=== PATIENT | female | born 1940 | race Caucasian/White ===

== ENCOUNTER 2019-01-23 08:58 | Day surgery (SDC) | payer OTHER ==
--- NOTE | 2019-01-16 11:55 | RAD REPORT ---
EXAM DESCRIPTION: Jeffrey Dos Santos (2 Views)01/16/2019 10:56 am CLINICAL HISTORY: Shortness of breath/preop COMPARISON: None FINDINGS: The lungs appear clear of acute infiltrate. The heart is normal size IMPRESSION: No acute abnormalities displayed
--- NOTE | 2019-01-16 21:40 | EKG ---
Test Date: 2019-01-16 Test Time: 10:31:56 Bisque Brusher: PAPITO MEASUREMENT RESULTS: Intervals: Rate: 70 PA: 140 QRSD: 72 QT: 408 QTc: 440 [place]: P: 49 PA: 140 QRS: 35 T: 57 INTERPRETIVE STATEMENTS: Normal sinus rhythm Normal ECG No previous ECG available for comparison Electronically Signed On 01-16-19 21:38:25 CDT by Ramiro Dunn
--- OUTSIDE RECORDS SUMMARY | 2019-01-23 09:03 | XMS REPORT | Summary of Care ---
:1940 Author Organization [facility] Primary [facility] [place] Address [address] [place] [address]- Encounter HQ Alex(FIN) [phone] Date(s): 01/08/19 - 01/08/19 [facility] [place] [address] [place] [address] [place] [address]- Discharge Disposition: Home or Self Care Attending Physician: Sami Li MD Vital Signs Most recent to oldest [Reference Range]: 1 Height 152.4 cm (01/08/19 9:56 AM) Temperature Oral [96.4-99.1 DegF] 98.5 DegF (01/08/19 9:56 AM) Blood Pressure [90-140/60-90 mmHg] 101/66 mmHg (01/08/19 9:56 AM) Peripheral Pulse Rate [60-100 bpm] 93 bpm (01/08/19 9:56 AM) Weight 79 kg (01/08/19 9:56 AM) Body Mass Index 34.01 m2 (01/08/19 9:56 AM) Problem List Condition Effective Dates Status Health Status Informant Other allergic rhinitis(Confirmed) Active Arthritis(Confirmed) Active Asthma(Confirmed) Active Fatigue(Confirmed) Active GERD without esophagitis(Confirmed) Active Anxiety, generalized(Confirmed) Active Chronic wound infection of Active abdomen(Confirmed) Obesity(Confirmed) Active Seasonal allergies(Confirmed) Active Chicken pox(Confirmed) Resolved Allergies, Adverse Reactions, Alerts Substance Reaction Severity Status NKDA Active Medications No Known Medications Results No data available for this section Immunizations Given and Recorded Vaccine Date Status Refusal Reason Hx influenza vaccine-unspecified 06/19/18 Recorded pneumococcal 23-valent vaccine 09/19/15 Recorded zoster vaccine live 09/19/15 Recorded Procedures Procedure Date Related Diagnosis Body Site Status Arthroscopy of knee Completed Cholecystectomy Completed Colectomy Completed Stress test ECG - treadmill Completed Trigger thumb Completed Social History Social History Type Response Smoking Status Never smoker; Exposure to Tobacco Smoke None; Cigarette Smoking Last 365 Days No; Reg Smoking Cessation Counseling No entered on: 01/08/19 Assessment and Plan No data available for this section
--- OUTSIDE RECORDS SUMMARY | 2019-01-23 09:03 | XMS REPORT | Summary of Care ---
:1940 Author Organization [facility] Primary [facility] [place] Address [address] [place] [address]- Care Team Providers Name Role Phone Sami Li Primary Care Physician Encounter HQ Alex(DEVIN) [phone] Date(s): 06/26/18 - 06/27/18 [facility] [place] [address] [place] [address]- Vital Signs No data available for this section Problem List Condition Effective Dates Status Health Status Informant Other allergic rhinitis(Confirmed) Active Arthritis(Confirmed) Active Asthma(Confirmed) Active Fatigue(Confirmed) Active GERD without esophagitis(Confirmed) Active Anxiety, generalized(Confirmed) Active Chronic wound infection of Active abdomen(Confirmed) Obesity(Confirmed) Active Seasonal allergies(Confirmed) Active Chicken pox(Confirmed) Resolved Allergies, Adverse Reactions, Alerts No Known Medication Allergies Medications No data available for this section Results No data available for this section [...]
--- OUTSIDE RECORDS SUMMARY | 2019-01-23 09:03 | XMS REPORT | Summary of Care ---
:1940 Author Organization [facility] Primary [facility] [place] Address [address] [place] [address]- Care Team Providers Name Role Phone Sami Li Primary Care Physician Encounter HQ Alex(DEVIN) [phone] Date(s): 01/10/19 - 01/11/19 [facility] Primary [facility] [place] [address] [address] [place] [address]- Vital Signs No data available for this [...]
--- OUTSIDE RECORDS SUMMARY | 2019-01-23 09:03 | XMS REPORT | Continuity of Care Document ---
:1940 Author Organization Interface Problems Problem Status Onset Classification Date Comments Source Date Reported WOUND Active 10/30/19 [facility] 19 Other fatigue 06/24/20 01/07/2019 [facility] 18 [facility] LUMBAR Active 06/03/20 [facility] [place] SPONDYLOSIS, [facility] CERVICAL RADICULOPAT Discharge 03/23/20 03/26/2017 [facility] Diagnosis: 17 Head trauma HEAD INJURY Active 03/23/20 [facility] 17 [facility] R05 - COUGH Active 07/16/20 [facility] 15 [facility] Arthritis Active Problem 01/21/2019 [facility] [place] [facility], [facility] Asthma Active Problem 01/21/2019 [facility] [place] [facility], [facility] Fatigue Active Problem 01/21/2019 [facility] Group, [facility] [place] [facility], [facility] GERD without Active Problem 01/21/2019 Medical esophagitis Group,[facility] [place] [facility], [facility] Anxiety, Active Problem 01/21/2019 Medical generalized Group,[facility] [place] [facility], [facility] Obesity Active Problem 01/21/2019 [facility] [place] [facility], [facility] Seasonal Active Problem 01/21/2019 Medical allergies Group, [facility] [place] [facility], [facility] Chicken pox Resolved Problem 01/21/2019 [facility] Group,[facility] [place] [facility], [facility] Chronic wound Active Problem 01/21/2019 Medical infection of Group, [facility] abdomen [facility] Other allergic Active Problem 01/21/2019 Medical rhinitis Group, [facility] Other forms of 01/07/2019 [facility] dyspnea [facility] Medications Medication Details Route Status Patient Ordering Order Source Instructions Provider Date Estradiol 1 MG Oral =1 tab, Active Tablet PO, Daily, 2019 Medical # 90 tab, Group 1 Refill(s), Pharmacy: [facility] Alprazolam 0.25 MG 0.25 mg=1 Active Oral Tablet tab, PO, 2017 Medical Daily, PRN Group as needed for anxiety, # 90 tab, 1 Refill(s) Fluoxetine 20 MG Oral See Active Capsule [Prozac] Instructio 2018 Medical ns, 1/2 Group cap PO QAM x 1 week, then 1 full tab PO QAM, # 999 tab, 0 Refill(s), other omeprazole 20 mg oral See Active delayed release Instructio 2018 Medical capsule ns, # 90 Group unknown unit, Refill(s) 1, TAKE ONE CAPSULE BY MOUTH ONCE DAILY, Pharmacy: [facility] Docusate Sodium 100 100 mg=1 Active 01/06/ MH MG Oral Capsule cap, PO, 2017 Medical Daily, PRN Group Constipati on, # 90 cap, 0 Refill(s), Pharmacy: [facility] ferrous sulfate 325 325 mg=1 Active MH mg oral enteric tab, PO, 2017 Medical coated tablet BID, give Group with orange juice, # 60 tab, 1 Refill(s), Pharmacy: [facility] FLUoxetine 20 mg oral See Active tablet Instructio 2018 Medical ns, 1/2 Group tab PO QAM x 1 week, then 1 full tab PO QAM, # 30 tab, 5 Refill(s), Pharmacy: [facility] ciprofloxacin 250 mg 250 mg=1 No Longer oral tablet tab, PO, Active 2017 Medical Q12H, for Group UTI, X 3 day, # 6 tab, 0 Refill(s), Pharmacy: [facility] Estradiol 1 MG Oral 1 mg=1 Active Tablet [Estrace] tab, PO, 2017 Medical Daily, # Group 90 tab, 1 Refill(s), Pharmacy: [facility] medroxyprogesterone 2.5 mg=1 Active acetate 2.5 MG Oral tab, PO, 2017 Medical Tablet [Provera] Daily, # Group 90 tab, 3 Refill(s), Pharmacy: [facility] omeprazole 20 mg oral 20 mg=1 Active delayed release cap, PO, 2016 Medical capsule Daily, # Group 90 cap, 1 Refill(s), Pharmacy: [facility] Alprazolam 0.25 MG 0.25 mg=1 Active Oral Tablet tab, PO, 2016 Medical Daily, 0 Group Refill(s) Estradiol 1 MG Oral 1 mg=1 Active Tablet [Estrace] tab, PO, 2016 Medical Daily, # Group 90 tab, 1 Refill(s) sennosides, NURSING HOME 0 Active Refill(s) 2017 Medical Group Ondansetron 4 MG 4 mg=1 Active Disintegrating Tablet tab, PO, 2016 Medical [Zofran] BID, PRN Group Nausea and Vomiting, Dissolve tab under tongue, # 10 tab, 0 Refill(s) Metoclopramide 5 MG 5 mg=1 Inactive Oral Tablet [Reglan] tab, PO, 2016 Medical QID, # 360 Group tab, 0 Refill(s) Medroxyprogesterone 2.5 mg, 1 Active tab every 2017 Medical other day, Group 0 Refill(s) Cephalexin 500 MG 500 mg=1 Active Oral Capsule [Keflex] cap, PO, 2017 Medical BID, # 14 Group cap, 0 Refill(s) Ibuprofen 600 mg, Inactive Route: PO, 2016 [place] ONCE, Dosing Weight 77, kg, Priority: STAT, Start date: 03/23/17 10:43:00 CDT, Stop date: 03/23/17 10:43:00 CDT Allergies, Adverse Reactions, Alerts Substance Category Reaction Severity Reaction Status Date Comments Source type Reported No Known Assertion Drug Medication allergy Medical Allergies Group Immunizations Immunization Date Site Status Last Comments Source Given Updated Hx influenza [facility] vaccine-unspecifi 8 Group ed pneumococcal [facility] 23-valent vaccine 6 Group, JONES [place] zoster vaccine [facility] live 6 Group, [facility] Results Order Results Value Reference Date Interpretation Comments Source Name Range Chest 2 Chest 2 EXAM: Chest 2 views DX 06/20 - [facility] views DX views DX /2017 - [facility] DATE: 06/20/2018 9:20 AM CDT INDICATION: - R06.09 Other forms of dyspnea Read by: Zenon Nance MD Dictated Date/time: 06/20/18 10:24 COMPARISON: 07/16/2015. Electronically Signed by: Zenon Nance MD 06/20/18 10:25 FINAL REPORT IMPRESSION: Stable cardiac silhouette and mediastinum. The lungs are mildly hyperexpanded. No focal consolidation, significant pleural effusion or pneumothorax. Mild thoracic spondylosis. SL: [id number] Spine Spine Patient Name: JONNATHAN RIVERA 03/23 - [facility] cervical cervical /2016 - [facility]air wo wo : 1940; Age: 77 years y/o Female contrast contrast CT CT MR: [id number] Read by: Tha Irvin MD Dictated Date/time: 03/23/17 11:11 Electronically Signed by: Tha Irvin MD 03/23/17 11:16 FINAL REPORT Study: Spine cervical wo contrast CT 03/23/2017 10:43 AM CDT Ordering Physician: Clinical Indication: - head trauma, dlp 228.32mgy-cm; Comparison: None Cervical spine CT without contrast No cervical spine fracture, pathologic subluxation or lesion. There is advanced degenerative spondylosis. Severe facet arthropathy most marked at the left C1-C2 facet. There is disc space narrowing and osteophytes which cause severe neural exit foraminal encroachment on the right at C3-C4, C5- C6 and C6-C7. Left apical pleural and parenchymal fibrotic changes are present. IMPRESSION: Advanced multilevel degenerative spondylosis. No acute findings. SL: [id number] Brain wo Brain wo I have reviewed this examination and concur with the interpretation. 03/23 - [facility] contrast contrast /2016 - [place] CT CT Patient Name: JONNATHAN RIVERA : 1940; Age: 77 years y/o Female Read by: Colby Salomon MD Dictated Date/time: 03/23/17 11:24 MR: [id number] Electronically Signed by: Colby Salomon MD 03/23/17 11:25 FINAL REPORT - - Study: Brain wo contrast CT 03/23/2017 10:43 AM CDT Read by: Tha Irvin MD Dictated Date/time: 03/23/17 11:08 Clinical Indication: head trauma - head trauma, dlp 999.46mgy-cm; Electronically Signed by: Tha Irvin MD 03/23/17 11 :10 FINAL REPORT Comparison: None TECHNIQUE: CT images were obtained from the foramen magnum to the vertex without the use of intravenous contrast on a multidetector CT. Coronal and sagittal reconstructions were obtained. FINDINGS: BRAIN PARENCHYMA: Mild periventricular white matter microvascular ischemic changes are noted. There are normal porter-white interfaces. No evidence for subarachnoid, intraparenchymal or intraventricular hemorrhage. No significant extra-axial fluid collection, mass effect or shift. No evidence for an acute infarction. No mass lesions identified about the brain. VENTRICLES: Ventricles and sulci are within normal limits for the patient' s age. ORBITS, MASTOIDS AND PARANASAL SINUSES: The visualized orbits and paranasal sinuses are unremarkable. The mastoid air cells are clear. SKULL: There are no osseous abnormalities. If there is further concern for intracranial pathology or acute stroke, MRI of the brain may be performed for complete assessment. IMPRESSION: No acute intracranial finding. SL: [id number] Chest 2 Chest 2 PA and LATERAL CHEST 07/16 - [facility] views DX views DX /2015 - [facility] (2 views) Read by: Lino Gama MD Dictated Date/time: 07/16/15 16:42 HISTORY: cough, aspiration Electronically Signed by: Lino Gama MD 07/16/15 16:43 FINAL REPORT There are no prior studies available for comparison. FINDINGS: The lungs are clear. There are no pleural effusions. The heart and pulmonary vasculature are within normal limits. Mild degenerative change involving the thoracic spine. Otherwise, the regional skeleton is unremarkable. The lateral view, metallic densities project at the upper abdomen, probably cholecystectomy changes surgical CONCLUSION: 1. No active disease. Coding: Chest 2 views CPT Code: 65323 SL: 16 Lino Gama M.D. Vital Signs Vital Sign Value Date Comments Source Heart Rate 93 01/08/2019 [facility] Temperature Oral (F) 98.5 F 01/08/2019 [facility] Systolic (mm Hg) 101 01/08/2019 [facility] Diastolic (mm Hg) 66 01/08/2019 [facility] Weight 79 01/08/2019 [facility] Height 152.4 cm 01/08/2019 [facility] BMI Calculated 34.01 01/08/2019 [facility] Group BMI Calculated 33.58 06/13/2018 [facility] Weight 78 06/13/2018 [facility] Height 152.4 cm 06/13/2018 [facility] Systolic (mm Hg) 114 06/13/2018 [facility] Diastolic (mm Hg) 65 06/13/2018 [facility] Group Heart Rate 84 06/13/2018 [facility] Temperature Oral (F) 98.3 F 06/13/2018 [facility] BMI Calculated 32.96 04/25/2018 [facility] Weight 76.545 04/25/2018 [facility] Height 152.4 cm 04/25/2018 [facility] Temperature Oral (F) 98.5 F 04/25/2018 [facility] Group Heart Rate 83 04/25/2018 [facility] Systolic (mm Hg) 137 04/25/2018 [facility] Diastolic (mm Hg) 79 04/25/2018 [facility] Systolic (mm Hg) 123 04/10/2018 [facility] Diastolic (mm Hg) 69 04/10/2018 [facility] Heart Rate 86 04/10/2018 [facility] Temperature Oral (F) 98.9 F 04/10/2018 [facility] Group BMI Calculated 32.8 04/10/2018 [facility] Height 152.4 cm 04/10/2018 [facility] Weight 76.182 04/10/2018 [facility] BMI Calculated 30.96 01/04/2018 [facility] Weight 71.909 01/04/2018 [facility] Height 152.4 cm 01/04/2018 [facility] Temperature Oral (F) 98.1 F 01/04/2018 [facility] Group Heart Rate 86 01/04/2018 [facility] Systolic (mm Hg) 127 01/04/2018 [facility] Diastolic (mm Hg) 77 01/04/2018 [facility] Temperature Oral (F) 99.5 F 11/08/2017 [facility] Group Weight 69.636 11/08/2017 [facility] Group BMI Calculated 29.98 11/08/2017 [facility] Height 152.4 cm 11/08/2017 [facility] Systolic (mm Hg) 120 11/08/2017 [facility] Diastolic (mm Hg) 78 11/08/2017 [facility] Heart Rate 86 11/08/2017 [facility] Group BMI Calculated 29.71 08/23/2017 [facility] Weight 69 08/23/2017 [facility] Height 152.4 cm 08/23/2017 [facility] Systolic (mm Hg) 126 08/23/2017 [facility] Diastolic (mm Hg) 85 08/23/2017 Medical [facility] Temperature Oral (F) 98.2 F 08/23/2017 [facility] Group Heart Rate 93 08/23/2017 [facility] Group Respitory Rate 18 03/23/2017 [facility] Systolic (mm Hg) 134 03/23/2017 [facility] Diastolic (mm Hg) 76 03/23/2017 [facility] Temperature Oral (F) 98.0 F 03/23/2017 [facility] Heart Rate 84 03/23/2017 [facility] BMI Calculated 28.25 03/23/2017 [facility] Weight 77 03/23/2017 [facility] Temperature Oral (F) 98.1 F 03/23/2017 [facility] Height 165.1 cm 03/23/2017 [facility] Systolic (mm Hg) 147 03/23/2017 [facility] Diastolic (mm Hg) 83 03/23/2017 [facility] Respitory Rate 16 03/23/2017 [facility] Heart Rate 83 03/23/2017 [facility] Encounters Location Location Encounter Encounter Reason Attending ADM DC Status Source Details Type Number For Provider Date Date Visit [facility] Outpt Diag [id number] [place] 07/16 07/17 [facility] Out[facility] [id number] KAILEE 11/25 [facility] [id number] KAILEE 06/29 [facility] 1 [facility] Outpatient [id number] KAILEE 02/28 Active [facility] 2 [facility] [id number] Virgie 03/23 03/23 [facility] 1 Luis /2016 [facility] Outpatient [id number] KAILEE 06/01 [facility] 3 [facility] [place] [facility] [id number] Zachary 07/13 08/12 [facility]2016 [place] [facility] Phone [id number] 08/18 08/20 [facility] [place] [facility] Outpatient [id number] KAILEE 08/23 [facility] 4 [place] Outpatient [id number] Kailee 08/23 08/24 [facility] [place] [facility] Outside [id number] 08/26 08/28 [facility] [place] [facility] Outside [id number] 11/01 11/03 [facility] [place] [facility] Outpatient [id number] KAILEE 11/08 [facility] 5 [place] Outpatient [id number] Kailee 11/08 11/09 [facility] [place] [facility] Phone [id number] 11/11 11/13 [facility] [place] [facility] Phone [id number] 12/08 12/10 [facility] Primary Message [facility] [place] [facility] Phone [id number] 12/09 12/11 [facility] [place] [facility] Phone [id number] 12/19 12/21 [facility] [place] [facility] Phone [id number] 12/30 01/01 [facility] [place] [facility] Outpatient [id number] 01/04 Active [facility] 6 [place] Outpatient [id number] Kailee 01/04 01/05 [facility] Primary 6 [facility] [place] [facility] Phone [id number] 02/17 02/19 [facility] [place] [facility] Phone [id number] 04/07 04/09 [facility] [place] [facility] Outpatient [id number] 04/10 [facility] 7 [place] Outpatient [id number] Kailee 04/10 04/11 [facility] 7 [facility] [place] [facility] Outpatient [id number] KAILEE 04/25 Active [facility] 8 [facility] MG Outpatient [id number] Kailee 04/25 04/26 [facility] [place] [facility] Phone [id number] 05/02 05/04 [facility] Primary Message [facility] [place] [facility] Outpatient [id number] KAILEE 06/13 Active [facility] 9 [facility] Outpatient [id number] Kailee 06/13 06/14 [facility] [place] [facility] Outpt Diag [id number] Kailee 06/20 06/21 [facility] Phone [id number] 06/26 06/28 [facility] Primary Message [facility] [place] [facility] Phone [id number] 07/03 07/05 [facility] Primary Message [facility] [place] [facility] Outpatient [id number] KAILEE 07/20 Active [facility] 0 [place] [facility] Phone [id number] 12/15 12/17 [facility] Primary Message [facility] [place] [facility] Outpatient [id number] Kailee 01/08 Active [facility] 1 [facility] MG Outpatient [id number] Kailee 01/08 01/09 [facility] 1 [facility] [place] [facility] Between [id number] 01/10 01/11 [facility] Primary Visit [facility] [place] [facility] Procedures Procedure Code Date Perfomer Comments Source Arthroscopy of knee [id number] [facility] Cholecystectomy [id number] [facility] Trigger thumb [id number] Medical Group Colectomy [id number] [facility] Arthroscopy of knee [id number] [facility] [place] [facility] Cholecystectomy [id number] [facility] [place] [facility] Trigger thumb [id number] [facility] [place] [facility] Arthroscopy of knee [id number] [place] Cholecystectomy [id number] [facility] [place] Trigger thumb [id number] [facility] [place] Arthroscopy of knee [id number] [facility] Cholecystectomy [id number] [facility] [place] Colectomy [id number] [facility] [place] Trigger thumb [id number] [facility] Stress test ECG - [id number] Medical Group treadmill
--- OUTSIDE RECORDS SUMMARY | 2019-01-23 09:03 | XMS REPORT | Summary of Care ---
:1940 Author Organization [facility] Primary [facility] [place] Address [address] [place] [address]- Care Team Providers Name Role Phone Sami Li Primary Care Physician Encounter HQ Alex(DEVIN) [phone] Date(s): 01/10/19 - 01/11/19 [facility] [place] [address] [place] [address] [place] [address]- Vital Signs No data available for this [...]
--- OUTSIDE RECORDS SUMMARY | 2019-01-23 09:04 | XMS REPORT | Summary of Care ---
:1940 Author Organization [facility] Primary [facility] [place] Address [address] [place] [address]- Care Team Providers Name Role Phone Sami Li Primary Care Physician Encounter HQ Alex(DEVIN) [phone] Date(s): 07/03/18 - 07/04/18 [facility] Primary [facility] [place] [address] [place] [address]- Vital Signs No data available for this section Problem List Condition Effective Dates Status Health Status Informant Other allergic rhinitis(Confirmed) Active Arthritis(Confirmed) Active Asthma(Confirmed) Active Fatigue(Confirmed) Active GERD without esophagitis(Confirmed) Active Anxiety, generalized(Confirmed) Active Chronic wound infection of Active abdomen(Confirmed) Obesity(Confirmed) Active Seasonal allergies(Confirmed) Active Chicken pox(Confirmed) Resolved Allergies, Adverse Reactions, Alerts No Known Medication Allergies Medications ALPRAZOLam 0.25 mg oral tablet 0.25 mg=1 tab, PO, Daily, PRN as needed for anxiety, # 90 tab, 1 Refill(s) Start Date: 07/04/18 Stop Date: 09/19/19 Status: Ordered Results No data available for this section [...]
[2019-01-23] MEDS ORDERED: BUPIVACAINE 0.5% PF 10 ML VIAL ONE (09:16)
[2019-01-23] MEDS ORDERED: Ringers Lactate 1,000 ML IV ONE (09:33)
[2019-01-23] MEDS ORDERED: CEFOXITIN/SWI 1gm 1 GM/10 ML SYR ONE (09:43)
[2019-01-23] MEDS ORDERED: PROPOFOL 200 MG/20 ML VIAL IV ONE (09:56)
[2019-01-23] MEDS ORDERED: FENTANYL CITR 100 MCG/2 ML ONE ×2 (09:57→11:00)
[2019-01-23] MEDS ORDERED: LIDOCAINE 1% MPF 2 ML AMPULE ONE (09:59)
[2019-01-23] MEDS ORDERED: ROCURONIUM 50 MG/5 ML VIAL IV ONE (11:01)
[2019-01-23] MEDS ORDERED: NEOSTIGMINE 1 MG/ML -10 ML VIAL ONE (11:01)
[2019-01-23] MEDS ORDERED: GLYCOPYRROLATE 0.2 MG/ML SYR ONE (11:02)
[2019-01-23 11:45] VITALS: TEMP 97.1; O2SAT 94
[2019-01-23] MEDS ORDERED: HYDROCODONE/APAP 7.5/325 MG TAB ONE (12:39)
[2019-01-23 13:28] VITALS: BP 130/50
--- NOTE | 2019-01-23 21:29 | OP ---
Date of Procedure: 01/23/2019 Surgeon: Ned Cuevas MD Preoperative Diagnosis: Nonhealing wound in the abdomen. Postoperative Diagnosis: Nonhealing wound in the abdomen. Procedures: Wide excision nonhealing abdominal wound, exploratory laparotomy, and repair of abdomina l fistula. Estimated Blood Loss: Minimal. Specimen: Nonhealing wound and fistula. Finding: As above. Anesthesia: General. Complications: None. Disposition: The patient tolerated the procedure in stable condition and taken to Recovery in good g eneral condition. Procedure In Detail: The patient was brought to the OR and placed in supine position. General anest hesia was begun. The patient was prepped and draped in usual sterile fashion. Marcaine 0.5% was inf iltrated locally. A 15-blade was used to make an ellipse of skin incision approximately 8 x 3 cm, ov er the nonhealing wound, where we had a tract tunneling device. A probe was utilized and then around the edges of the probe, the entire tract, nonhealing wound was excised, and this went all the way do wn into the peritoneal cavity leaving approximately a 4 cm defect in the fascia. Peritoneal contents , bowel were visualized, and they were healthy. Good fascial edges were obtained. The fistulous tra ct and nonhealing wound were sent to Pathology, and then the #1 PDS [id number] sutures were used in interrupted fashion to close the fascial defect. Wounds were irrigated. Bleeding controlled wit h cautery. 3-0 Chromic was used to approximate the subcutaneous tissue, and hoang used to close th e skin. Sterile dressing was applied. The patient was awakened and taken to Recovery in good general condition. /MODL Voice ID: [id number] Report ID: [id number]
--- NOTE | 2019-01-23 21:35 | DS ---
Date of Discharge: 01/23/2019 The patient will go to Day Surgery and home when stable. Disposition: Home. Condition: Stable. Discharge Instructions: Resume home medications and diet. Activity as tolerated. No heavy lifting. Remove outer dressing in 2 days. Shower. Keep wound clean and dry. [facility] 1 [facility]. Call for appointment. Tylenol No. 3 one tablet p.o. q.4 p.r.n. pain, Cipro 500 mg p.o. q.12. /MODL Voice ID: [id number] Report ID: [id number]
== END 2019-01-23 13:20 | disposition home or self-care (01) ==
LOC: OR 08:58
PROVIDERS: ATTEND Surgery
PROC: 0JB80ZZ Excision of Abdomen Subcutaneous Tissue and Fascia, Open Approach (ICD-10-PCS; principal; 2019-01-23 10:45)
DX: S31.109A Unspecified open wound of abdominal wall, unspecified quadrant without penetration into peritoneal cavity, initial encounter (principal); T81.89XA Other complications of procedures, not elsewhere classified, initial encounter; L76.82 Other postprocedural complications of skin and subcutaneous tissue; L02.211 Cutaneous abscess of abdominal wall; L90.5 Scar conditions and fibrosis of skin; L03.311 Cellulitis of abdominal wall; E66.9 Obesity, unspecified
CPT/HCPCS: 11042; 11045; 93005; 88304; 71046; J2704; J2710; J3010; J2001